=== PATIENT | male | born 1950 | race Caucasian/White ===

== ENCOUNTER 2018-12-29 11:25 | Emergency (ER) | payer OTHER ==
[2018-12-29 11:49] VITALS: TEMP 98.1; BMI 34.4
--- NOTE | 2018-12-29 12:08 | PDOC ---
History of Present Illness - General Chief Complaint: Injury Stated Complaint: FALL Time Seen by Provider: 12/29/18 12:08 - History of Present Illness Initial Comments: 12/29/18 12:17 Mr. Jansen is a 68 yo male w/ pmh of HTN, HLD, DM, Aortic valve repair (on coumadin) who presents for evaluation after mechanical fall earlier today. Patient reports he tripped on a storm grate and fell onto his left side. Denies any dizziness, head injury, or LOC. Currently complaining of left shoulder and left rib pain at impact site. Denies any other complaints at this time. Believes he may have dislocated his shoulder however he reports he was able to drive himself to ER following event. The patient denies chest pain, shortness of breath, headache and dizziness. Denies fever, chills, nausea, vomit, diarrhea and constipation. Denies dysuria, frequency, urgency and hematuria. Past History - Past Medical History Allergies/Adverse Reactions: Allergies Allergy/AdvReac Type Severity Reaction Status Date / Time Penicillins Allergy Mild Difficulty Verified 12/29/18 11:38 Breathing Home Medications: Ambulatory Orders Atorvastatin Ca [Lipitor] 40 mg PO HS 12/29/18 Carbamazepine [Carbamazepine ER] 100 mg PO BID 12/29/18 Gabapentin 100 mg PO TID 12/29/18 Isosorbide Mononitrate [Isosorbide Mononitrate ER] 60 mg PO DAILY 12/29/18 Levalbuterol HCl [Xopenex] 1.25 mg IH DAILY 12/29/18 Lisinopril 5 mg PO DAILY 12/29/18 Metformin HCl [Glucophage] 1,000 mg PO BID 12/29/18 Metoprolol Succinate 25 mg PO BID 12/29/18 Omeprazole 20 mg PO DAILY 12/29/18 Oxycodone HCl 5 mg PO Q6H PRN #12 tablet MDD 4 tabs 12/29/18 Pioglitazone HCl [Actos] 45 mg PO DAILY 12/29/18 Sertraline HCl 50 mg PO DAILY 12/29/18 Warfarin Na [Coumadin] 10 mg PO DAILY 12/29/18 Cardiac Disorders: Yes (AORTIC VALVE 2012) COPD: No - Surgical History Cardiac Surgery: (AOTIC VALVE 2012) - Suicide/Smoking/Psychosocial Hx Smoking History: Former smoker Have you smoked in the past 12 months: No If you are a former smoker, when did you quit?: 2008 Information on smoking cessation initiated: No Hx Alcohol Use: No Drug/Substance Use Hx: No Review of Systems - Review of Systems Comments:: 12/29/18 12:20 GENERAL/CONSTITUTIONAL: No fever or chills. No weakness. HEAD, EYES, EARS, NOSE AND THROAT: No change in vision. No ear pain or discharge. No sore throat. CARDIOVASCULAR: No chest pain or shortness of breath RESPIRATORY: No cough, wheezing, or hemoptysis. GASTROINTESTINAL: No nausea, vomiting, diarrhea or constipation. GENITOURINARY: No dysuria, frequency, or change in urination. MUSCULOSKELETAL: +L shoulder and rib pain as described. SKIN: No rash NEUROLOGIC: No headache, vertigo, loss of consciousness, or change in strength/ sensation. ENDOCRINE: No increased thirst. No abnormal weight change HEMATOLOGIC/LYMPHATIC: No anemia, easy bleeding, or history of blood clots. ALLERGIC/IMMUNOLOGIC: No hives or skin allergy. *Physical Exam - Vital Signs Last Vital Signs Temp Pulse Resp BP Pulse Ox 98.1 F 191/93 H 12/29/18 11:38 12/29/18 11:38 - Physical Exam Comments: 12/29/18 12:20 GENERAL: Awake, alert, and fully oriented, in no acute distress HEAD: No signs of trauma, normocephalic, atraumatic EYES: PERRLA, EOMI, sclera anicteric, conjunctiva clear ENT: Auricles normal inspection, hearing grossly normal, nares patent, oropharynx clear without exudates. Moist mucosa NECK: Normal ROM, supple, no lymphadenopathy, JVD, or masses LUNGS: No distress, speaks full sentences, clear to auscultation bilaterally HEART: Regular rate and rhythm, normal S1 and S2, no murmurs, rubs or gallops, peripheral pulses normal and equal bilaterally. ABDOMEN: Soft, nontender, normoactive bowel sounds. No guarding, no rebound. No masses EXTREMITIES: +L shoulder deformity noted. Shoulder shrug exam limited by pain. Strenth otherwise intact at elbow/wrist, unable to test L shoulder mobility due to pain. Patient neurovascularly intact. Otherwise normal inspection, Normal range of motion, no edema. No clubbing or cyanosis. NEUROLOGICAL: Cranial nerves II through XII grossly intact. Normal speech, normal gait, no focal sensorimotor deficits SKIN: Warm, Dry, normal turgor, no rashes or lesions noted. Moderate Sedation - Procedure Monitoring Vital Signs: Procedure Monitoring Vital Signs Temperature 98.1 F 12/29/18 11:38 Pulse Rate Respiratory Rate Blood Pressure 191/93 H 12/29/18 11:38 O2 Sat by Pulse Oximetry (%) ED Treatment Course - LABORATORY CBC & Chemistry Diagram: 12/29/18 12:45 12/29/18 12:45 Medical Decision Making - Medical Decision Making 12/29/18 14:23 Mr. Jansen is a 68 yo male / pmh as described who presents for evaluation s/p mechanical fall. Patient evaluated with labs as below w/ no acute findings as well as XR. Patient pain controlled with morphine / zofran to good effect. Patient noted to have L humeral neck fracture (well approximated, closed). Patient placed in sling and told to f/u w/ ortho. Rx for pain control sent to pts pharmacy. Laboratory Results - last 24 hr 12/29/18 12/29/18 12/29/18 12:45 12:45 12:45 WBC 5.1 RBC 3.80 L Hgb 11.9 Hct 34.2 L MCV 90.0 MCH 31.3 MCHC 34.7 RDW 13.6 Plt Count 191 MPV 7.6 Absolute Neuts (auto) 3.4 Neutrophils % 66.1 Lymphocytes % 21.7 Monocytes % 9.0 Eosinophils % 2.5 Basophils % 0.7 Nucleated RBC % 0 PT with INR 42.60 H INR 3.56 H PTT (Actin FS) 37.6 H Sodium 135 L Potassium 4.5 Chloride 104 Carbon Dioxide 26 Anion Gap 5 L BUN 17 Creatinine 0.9 Creat Clearance w eGFR 84.43 Random Glucose 136 H Calcium 8.2 L Total Bilirubin 0.2 AST 38 H ALT 28 Alkaline Phosphatase 76 Total Protein 7.0 Albumin 3.5 *DC/Admit/Observation/Transfer Diagnosis at time of Disposition: Humerus fracture Qualifiers: Encounter type: initial encounter Humerus Location: proximal Fracture type: closed Fracture morphology: other fracture Fracture alignment: nondisplaced Laterality: left Qualified Code(s): S42.295A - Other nondisplaced fracture of upper end of left humerus, initial encounter for closed fracture - Discharge Dispostion Disposition: HOME - Prescriptions Prescriptions: Oxycodone HCl 5 mg PO Q6H PRN #12 tablet MDD 4 tabs PRN Reason: Severe Pain - Referrals Referrals: Christophe Avendaño MD [Primary Care Provider] - Flo Wolf MD [Staff Physician] - - Patient Instructions Printed Discharge Instructions: DI for Humeral Fracture Additional Instructions: You were evaluated today in the ER after your fall and found to have a humeral fracture. We have provided orthopedic follow-up for you; please call for outpatient evaluation as soon as possible. You may take motrin or tylenol per package instructions for pain control. We have also sent a prescription to your pharmacy for pain medicine that you may use for breakthrough pain if the over the counter medications are not sufficient to control pain. Take all medications as written. Return to ER if any fever, chills, increase in pain not controllable with medications as written, or other concerning symptoms. - Post Discharge Activity
--- NOTE | 2018-12-29 12:10 | PDOC ---
Attending Attestation - HPI HPI: 12/29/18 12:31 The patient is a 68 yo male with significant past medical history of HTN, HLD, DM, Aortic valve repair (on Coumadin) who presents to the emergency department for evaluation of left shoulder pain and left rib pain after a trip and fall on a storm grate landing him on his left side today. He denies any other complaints at this time. He denies chest pain, shortness of breath, headache and dizziness. He denies fever, chills, nausea, vomit, diarrhea and constipation. He denies dysuria, frequency, urgency and hematuria. <Francoise Carroll - Last Filed: 12/29/18 12:31> - Resident Resident Name: Wolfgang Perez - ED Attending Attestation I have performed the following: I have examined & evaluated the patient, The case was reviewed & discussed with the resident, I agree w/resident's findings & plan, Exceptions are as noted - Physicial Exam PE: GENERAL: Awake, alert, and fully oriented, in no acute distress HEAD: No signs of trauma EYES: PERRLA, EOMI, sclera anicteric, conjunctiva clear ENT: Auricles normal inspection, hearing grossly normal, nares patent, oropharynx clear without exudates. Moist mucosa NECK: Normal ROM, supple, no lymphadenopathy, JVD, or masses LUNGS: Breath sounds equal, clear to auscultation bilaterally. No wheezes, and no crackles. +Tenderness to L anterior lower rib margin. HEART: Regular rate and rhythm, normal S1 and S2, no murmurs, rubs or gallops ABDOMEN: Soft, nontender, normoactive bowel sounds. No guarding, no rebound. No masses EXTREMITIES: LUE with tenderness to proximal humerus, dec ROM due to pain. Distal N/V intact. Remainder of extremities with normal range of motion, no edema. No clubbing or cyanosis. No cords, erythema, or tenderness NEUROLOGICAL: Cranial nerves II through XII grossly intact. Normal speech, normal gait. Motor and sensation intact SKIN: Warm, Dry, normal turgor, no rashes or lesions noted. - Medical Decision Making Pt with suspected proximal humerus fracture, will obtain XR. Also suspected L rib fx. <Mariana Casillas - Last Filed: 12/29/18 12:49> Attestations - Attestations 12/29/18 12:33 Documentation prepared by Francoise Carroll, acting as medical device sales representative for Mariana Casillas MD <Francoise Carroll - Last Filed: 12/29/18 12:31>
[2018-12-29] MEDS ORDERED: morphine CARPU-JECT 4 MG/1 ML DISP.SYRIN IVPUSH ONE (12:25)
[2018-12-29] MEDS ORDERED: morphine SULFATE 4 MG/ML VIAL ONE (12:45)
[2018-12-29 13:04] LABS: BASO % 0.7 % (0-2.0); EOS % 2.5 % (0-4.5); HEMATOCRIT 34.2 % (35.4-49); HEMOGLOBIN 11.9 GM/dL (11.7-16.9); LYMPH % 21.7 % (8-40); MCH 31.3 pg (25.7-33.7); MCHC 34.7 g/dl (32.0-35.9); MEAN PLT VOLUME 7.6 fl (7.5-11.1); NEUT % 66.1 % (42.8-82.8); PLATELET COUNT 191 K/MM3 (134-434); RDW 13.6 % (11.9-15.9); WHITE BLOOD COUNT 5.1 K/mm3 (4.0-10.0)
[2018-12-29 13:21] LABS: INR 3.56 (0.83-1.09); PROTHROMBIN TIME (PATIENT) 42.6 SEC (9.7-13.0)
[2018-12-29 13:24] LABS: ACTIVATED PTT 37.6 SECONDS (25.2-36.5)
[2018-12-29 13:38] LABS: ALBUMIN 3.5 g/dl (3.4-5.0); ALK PHOS 76 U/L (45-117); ANION GAP 5 MMOL/L (8-16); BILIRUBIN,TOTAL 0.2 mg/dL (0.2-1); BLOOD UREA NITROGEN 17 mg/dL (7-18); CALCIUM 8.2 mg/dL (8.5-10.1); CHLORIDE 104 mmol/L (98-107); CO2 26 mmol/L (21-32); CREATININE 0.9 mg/dL (0.55-1.3); GLUCOSE,RANDOM 136 mg/dL (74-106); POTASSIUM 4.5 mmol/L (3.5-5.1); SGOT/AST 38 U/L (15-37); SGPT/ALT 28 U/L (13-61); SODIUM 135 mmol/L (136-145)
[2018-12-29] MEDS ORDERED: ONDANSETRON 4 MG/2 ML VIAL IVPUSH ONE (13:54)
[2018-12-29] MEDS ORDERED: ONDANSETRON 4 MG/2 ML VIAL ONE (13:59)
[2018-12-29 15:26] VITALS: BP 171/62; PULSE 70
[2018-12-29] MEDS ORDERED: IBUPROFEN 400 MG TABLET (FP) PO ONE ×2 (16:21→16:23)
== END 2018-12-29 16:27 | disposition home or self-care (01) ==
LOC: JER 11:25
PROC: 3E033NZ Introduction of Analgesics, Hypnotics, Sedatives into Peripheral Vein, Percutaneous Approach (ICD-10-PCS; principal; 2018-12-29)
PROC: 3E0337Z Introduction of Electrolytic and Water Balance Substance into Peripheral Vein, Percutaneous Approach (ICD-10-PCS; 2018-12-29)
DX: S42.295A Other nondisplaced fracture of upper end of left humerus, initial encounter for closed fracture (principal); W18.09XA Striking against other object with subsequent fall, initial encounter; Y93.89 Activity, other specified; Y92.89 Other specified places as the place of occurrence of the external cause
CPT/HCPCS: 36415; 71101-TC-LT-FY; 73030-TC-LT-FY; 73060-TC-LT-FY; 80053; 85025; 85610; 85730; 96374; 96375; 99282-25